=== PATIENT | male | born 1950 | race Two or more races ===

== ENCOUNTER 2021-02-22 21:43 | Inpatient (IN) | payer OTHER ==
[~2021-02-22] VITALS: Ht 170.2 cm; Wt 107.0 kg
[2021-02-22] MEDS ORDERED: JARDIANCE10 MG (23:34)
[2021-02-22] MEDS ORDERED: SIMVASTATIN40 MG (23:34)
[2021-02-22] MEDS ORDERED: BAYER THERAPY325 MG (23:34)
[2021-02-22] MEDS ORDERED: VASOTEC5 MG (23:35)
[2021-02-22] MEDS ORDERED: GLUMETZA1000 MG (23:35)
[2021-02-22] MEDS ORDERED: GLIMEPIRIDE4 M1 (23:35)
[2021-02-22] MEDS ORDERED: CELEBREX200MG (23:36)
[2021-02-22] MEDS ORDERED: ALLOPURINOL100 MG (23:36)
[2021-02-22] MEDS ORDERED: TOPROL XL100 M1 (23:37)
[2021-03-03] MEDS ORDERED: VASOTEC10 MG PO (08:45)
[2021-03-03] MEDS ORDERED: SIMVASTATIN40 MG PO (08:46)
[2021-03-03] MEDS ORDERED: TOPROL XL100 M1 PO (08:46)
[2021-03-03] MEDS ORDERED: BAYER THERAPY325 MG PO (08:47)
[2021-03-03] MEDS ORDERED: ZYLOPRIM100 M1 PO (08:48)
[2021-03-03] MEDS ORDERED: FUROSEMIDE20 MG PO (08:52)
== END 2021-03-03 16:03 | disposition home or self-care (01) | DRG 191 ==
LOC: ER 21:43 → ICU-2 02-23 13:56 → SEC-K 02-26 14:58 → MEDI 02-26 15:05 → MEDJ 02-26 15:46
PROVIDERS: ADMIT Internal Medicine; ATTEND Internal Medicine
PROC: B24BZZZ Ultrasonography of Heart with Aorta (ICD-10-PCS; principal; 2021-02-23)
PROC: BW24ZZZ Computerized Tomography (CT Scan) of Chest and Abdomen (ICD-10-PCS; 2021-02-23)
PROC: B54DZZZ Ultrasonography of Bilateral Lower Extremity Veins (ICD-10-PCS; 2021-02-25)
PROC: 4A12X4Z Monitoring of Cardiac Electrical Activity, External Approach (ICD-10-PCS; 2021-02-27)
DX: J44.9 Chronic obstructive pulmonary disease, unspecified (principal); I25.810 Atherosclerosis of coronary artery bypass graft(s) without angina pectoris; I50.30 Unspecified diastolic (congestive) heart failure; R06.02 Shortness of breath; R09.02 Hypoxemia; I27.20 Pulmonary hypertension, unspecified; R06.89 Other abnormalities of breathing; E11.65 Type 2 diabetes mellitus with hyperglycemia; M10.9 Gout, unspecified; Z79.4 Long term (current) use of insulin; I11.0 Hypertensive heart disease with heart failure; I50.9 Heart failure, unspecified; E66.8 Other obesity; Z68.39 Body mass index [BMI] 39.0-39.9, adult; Z95.1 Presence of aortocoronary bypass graft; Z20.822 Contact with and (suspected) exposure to COVID-19